=== PATIENT | female | born 1980 | race African-American/Black ===

== ENCOUNTER → 2016-10-08 | Outpatient (CLI) | payer OTHER ==
[~2016-10-08] MED LIST: BREO ELLIPTA 11 EACH INH; LISINOPRIL20 MG PO; MONTELUKAST SOD10 MG PO; OMEPRAZOLE40 M1 PO; PROBIOTIC1 EAC1 PO; SEROQUEL XR300 M1 PO
--- NOTE | ~2016-10-08 | EKG ---
PATIENT: SILVESTRE COPELAND UNIT #: [id number] Ventricular Rate: 84 BPM Atrial Rate: 84 BPM P-R Interval: 148 ms QRS Duration: 84 ms Q-T Interval: 344 ms QTC Calculation(Bezet): 406 ms P [place]: 57 degrees Calculated R [place]: 65 degrees Calculated T [place]: 46 degrees Diagnosis Line: Normal sinus rhythm with sinus arrhythmia Diagnosis Line: Nonspecific T wave abnormality Diagnosis Line: Abnormal ECG Diagnosis Line: No previous ECGs available Diagnosis Line: Confirmed by MEG GUERRERO MD ([id number]) on Diagnosis Line: 10/09/2016 2:58:00 PM INTERPRETING MD: ANDRES
== END | disposition home or self-care (01) ==
LOC: CAMB 11:43
DX: Z01.810 Encounter for preprocedural cardiovascular examination (principal); K40.90 Unilateral inguinal hernia, without obstruction or gangrene, not specified as recurrent; I49.9 Cardiac arrhythmia, unspecified; R94.31 Abnormal electrocardiogram [ECG] [EKG]
CPT/HCPCS: 93005

== ENCOUNTER → 2016-10-15 | Day surgery (SDC) | payer OTHER ==
--- NOTE | ~2016-10-15 | OR ---
Unit #: [id number] #: [id number] Patient: SILVESTRE COPELAND [id number] [address] [place], [place] [address] [id number] O MR#: [id number] NAME: SILVESTRE COPELAND ROOM: Date of Procedure: 10/15/2016 Admission Date: 10/15/2016 Surgeon: Manny Ag M.D. : 1980 Attending Physician: Manny Ag M.D. Primary Care Physician: [facility] OPERATIVE REPORT PREOPERATIVE DIAGNOSIS Right inguinal hernia. POSTOPERATIVE DIAGNOSES 1. Indirect right inguinal hernia. 2. Direct right inguinal hernia. PROCEDURE PERFORMED Laparoscopic preperitoneal inguinal hernia repair of right-sided direct and indirect inguinal hernia. DOUGH PANNER None. ANESTHESIA General anesthesia. ESTIMATED BLOOD LOSS Minimal. IV FLUIDS 800 crystalloid. COMPLICATIONS None. INDICATIONS FOR PROCEDURE The patient is a 36-year-old with a bulge in her right groin consistent with an inguinal hernia. She presents for laparoscopic repair. DESCRIPTION OF PROCEDURE The patient was taken to the operating theater and placed in the supine position. General anesthesia was induced. The abdomen was prepped and draped. An infraumbilical incision was then made. A small incision was made in the anterior sheath. I created the preperitoneal space with blunt dissection. A Veress needle was placed intra-abdominal. The abdomen was insufflated to 15 mmHg with CO2. I then placed a 5-mm port. The patient was placed in Trendelenburg. I identified a right-sided direct and indirect inguinal hernia, not incarcerated. The pneumoperitoneum was released. Using the Autosuture balloon dissection system, I created the preperitoneal space in the right side only. I then placed two 5-mm ports in the midline. I dissected the right groin, identifying the lateral Unit #: [id number] #: [id number] Patient: SILVESTRE COPELAND space. The round ligament as well as the hernia sac were identified. These were transected and ligated with an Endoloop thus reducing the hernia. I then placed a large 3DMax mesh into position. This was held in place at Fahad ligament as well as lateral anterior musculature. The pneumopreperitoneum was released with care taken to avoid the peritoneum from sliding posterior to the mesh. Hemostasis was adequate. I removed the ports under direct vision. I closed the fascia with 0 Vicryl and the skin with 4-0 Vicryl. The patient tolerated the procedure well and sent to the recovery room in good condition. Dictated by... Hoa Luz/wolf TD: 10/16/2016 09:52 JOB #: [id number] OPERATIVE REPORT Page 1 of 1 X Manny Ag MD X PROCEDURE OPERATIVE NOTE
== END | disposition home or self-care (01) ==
LOC: CSUR 06:18
DX: K40.90 Unilateral inguinal hernia, without obstruction or gangrene, not specified as recurrent (principal); J45.909 Unspecified asthma, uncomplicated; K21.9 Gastro-esophageal reflux disease without esophagitis; F41.9 Anxiety disorder, unspecified; F31.9 Bipolar disorder, unspecified; K90.0 Celiac disease; F17.210 Nicotine dependence, cigarettes, uncomplicated; I10 Essential (primary) hypertension; M19.90 Unspecified osteoarthritis, unspecified site; G47.30 Sleep apnea, unspecified; K58.9 Irritable bowel syndrome, unspecified; Z79.899 Other long term (current) drug therapy; Z88.1 Allergy status to other antibiotic agents; Z90.49 Acquired absence of other specified parts of digestive tract; Z98.890 Other specified postprocedural states; Z88.8 Allergy status to other drugs, medicaments and biological substances; Z91.040 Latex allergy status; Z91.018 Allergy to other foods
CPT/HCPCS: 84703; C1781; J0330; J0690; J2250; J2405; J2710; J3010